=== PATIENT | male | born 1985 | race Caucasian/White ===

== ENCOUNTER 2022-02-15 17:26 | Emergency (ER) | payer BC, SELFPAY ==
[2022-02-15 17:41] VITALS: BP 145/74; PULSE 76; RESP 18; TEMP 36.4; O2SAT 100; BMI 21.2
--- NOTE | 2022-02-15 18:24 | HMH.EDUTC ---
[facility] [place] Disposition Clinical Impression: Otitis media Qualifiers: Otitis media type: unspecified Laterality: right Qualified Code(s): H66.91 - Otitis media, unspecified, right ear Disposition: Home, Self-Care Condition on Discharge: Good Instructions: Middle Ear Infection, Azithromycin Additional Instructions: *Monitor Temp, Over the counter Motrin or Tylenol as directed/as needed Tylenol every 4 hours and Motrin every 6 hours (as long as your family doctor has told you that you can take it) for fever or pain. and straight to ER if unable to lower temp less than 101.0 after medication given *Warm salt water gargles may help to soothe the throat *Throat Lozenges *Warm fluids like tea with honey may help to soothe the throat *Sleep elevated *Humidifier/Vaporizer Your throat swab was sent for culture. Those results are typically sent to your primary care. Be sure to follow up in 2-3 days with your family doctor/primary care physician if no improvement so they can review those result and treat if necessary. If you don?t have a primary care doctor, I recommend you get one but in the mean time, you will have to return to a walk in clinic Follow up IMMEDIATELY for new or worsening symptoms or no Noticeable improvement over the next 48-72 hours. 911 for difficulty breathing or swallowing Prescriptions: methylPREDNISolone [Medrol 4mg tab] 4 mg PO DIRECTED #21 tab [facility]: [facility] Azithromycin [Z-Kian 250mg Tab] 250 mg PO DIRECTED #6 tab Transmission Status: [facility] Referrals: Provider,Referral, [Primary Care Provider] - As needed Time of Disposition: 18:59 Medical Decision Making - José Manuel Inquiry Pt receiving controlled substance: No José Manuel was queried for this patient: No Vital Signs: 02/15/22 17:41 Temperature 97.6 F Temperature Source Oral Pulse Rate [Left] 76 Respiratory Rate 18 Blood Pressure [Right Arm] 145/74 H Blood Pressure Mean [Right Arm] 97 02 Sat by Pulse Oximetry 100 - Lab Data Lab results reviewed: Yes: I reviewed the patient's lab results. Lab Results 02/15/22 18:26: Group A Strep Rapid Negative Orders (Tests/Meds): ORDERS Category Date Time Status Strep Screen Confirmation Stat Micro 02/15/22 18:26 Received [facility] [place] HPI - General Stated complaint: both ears Time Seen by Provider: 02/15/22 18:26 Mode of Arrival: Ambulatory Source of Information: Patient Limitations: No Limitations Description of Symptoms (Recalled from Triage Doc. by RN): pt c/o bilateral ear aches and a sore throat x3 days. HEENT Symptoms (Recalled from RN notes): Yes Resp Symptoms (Recalled from RN notes): No Skin Symptoms (Recalled from RN notes): No MS Symptoms (Recalled from RN notes): No Functional Status (Recalled from RN notes): wnl - History of Present Illness Provider Complaint: Patient states that he has been having sore throat and bilateral ear pain States that it has continued to get worse over the last few days States that this evening he was feeling worse so he came in to get checked out - Related Data Home Medications Medication Instructions Recorded Confirmed buprenorphine 8 mg-naloxone 2 mg 1 tab SUBLINGUAL DAILY 07/06/21 07/06/21 sublingual tablet Previous Rx's Medication Instructions Recorded Azithromycin [Z-Kian 250mg Tab] 250 mg PO DIRECTED #6 tab 02/15/22 methylPREDNISolone [Medrol 4mg 4 mg PO DIRECTED #21 tab 02/15/22 tab] Allergies Allergy/AdvReac Type Severity Reaction Status Date / Time Penicillin Allergy Severe S-DIFF. Uncoded 09/11/19 17:23 BREATHING - Worker's Comp Is this a Worker's Comp case?: No [facility] History - Hepatitis A Screen Drug use history?: No High risk sexual behaviors?: No History of sexually transmitted infection?: No Currently employed?: No Childcare worker?: No Do you have indoor plumbing?: Yes Do you have electricity?: Yes Attestation
[2022-02-15 18:54] LABS: Strep Scrn Group A (Rapid) Negative (Negative)
[2022-02-15 19:05] VITALS: BP 145/74; PULSE 76; RESP 18; TEMP 36.4
== END 2022-02-15 19:16 | disposition home or self-care (01) ==
PROVIDERS: Emergency Provider Nurse Practitioner
DX: H66.93 Otitis media, unspecified, bilateral (principal); J02.9 Acute pharyngitis, unspecified; F17.210 Nicotine dependence, cigarettes, uncomplicated; Z88.0 Allergy status to penicillin
CPT/HCPCS: 87430; 96372; 99213; G0463

== ENCOUNTER → 2022-04-11 13:18 | Outpatient (CLI) | payer BC, SELFPAY ==
--- NOTE | 2022-04-11 13:21 | US_ITS ---
FINAL REPORT CLINICAL HISTORY: MASS OF RIGHT INGUINAL REGION. this is palpable FINDINGS: Sonographic images of the right groin were obtained. Multiple soft tissue nodules are identified, largest measures 3.8 cm, likely represents adenopathy. This may be neoplastic versus reactive nodes. IMPRESSION: Multiple soft tissue nodules which likely represents adenopathy, may be neoplastic versus reactive. Reviewed, Interpreted and Dictated by Rubén Diaz III, MD Transcribed by Milly Vann Authenticated and [facility]
== END ==
LOC: RAD 13:18
PROVIDERS: PCP Internal Medicine Adolescent Medicine; Visit Provider Internal Medicine Adolescent Medicine
DX: R19.09 Other intra-abdominal and pelvic swelling, mass and lump (principal)
CPT/HCPCS: 76882

== ENCOUNTER → 2022-05-04 11:43 | Outpatient (CLI) | payer BC, SELFPAY ==
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
--- NOTE | 2022-05-04 12:23 | XR_ITS ---
FINAL REPORT CLINICAL HISTORY: RT LEG SWELING,RT LEG PAIN FINDINGS: Two views of the right tibia-fibula demonstrate no acute fracture or dislocation. The joint spaces appear normal. The visualized bony structures are well aligned. There is mild soft tissue swelling. IMPRESSION: Swelling with no acute bony abnormality. Reviewed, Interpreted and Dictated by Lorenzo James MD Transcribed by Reginald Xavier Authenticated and . [facility]
== END ==
LOC: RAD 11:44
PROVIDERS: PCP Nurse Practitioner Family; Visit Provider Internal Medicine Adolescent Medicine
DX: M79.604 Pain in right leg (principal); M79.89 Other specified soft tissue disorders
CPT/HCPCS: 73590; 93971

== ENCOUNTER → 2022-05-11 07:29 | Outpatient (CLI) | payer BC, SELFPAY ==
--- NOTE | 2022-05-11 07:35 | US_ITS ---
FINAL REPORT CLINICAL HISTORY: RT INGUINAL, SWOLLEN LYMPH NODE-- core bx-- trevon moreno FINDINGS: Ultrasound guided right groin core biopsy. HISTORY: . Right groin mass. Attending radiologist: Dr. Diaz Physician Target Developer: Trevon Moreno PA-C PROCEDURE: After informed consent was obtained and a time-out was performed, the patient was prepped and draped in usual sterile fashion over the right groin. Utilizing local anesthesia and sterile coaxial technique with a 17-gaugeneedle, access to lesion was obtained. A total of 4 separate 18-gauge core biopsies were obtained. The patient received no conscious sedation. The patient tolerated procedure well and left the department in good condition. IMPRESSION: Status post ultrasound guided core biopsy of right groin mass without immediate complication. Films reviewed , interpreted and dictated by Dr. Diaz. Transcribed by Trevon Moreno PA-C. Reviewed, Interpreted and Dictated by Rubén Diaz III, MD Transcribed by JUSTYNA Terrell Authenticated and [facility]
--- NOTE | 2022-05-11 07:43 | US_ITS ---
FINAL REPORT CLINICAL HISTORY: Rt inguinal lymph node FINDINGS: US EXTREMITY, NONVASCULAR, LIMITED Limited sonographic images were obtained of the right inguinal region. There are enlarged right inguinal lymph nodes measuring up to 3.8 cm. IMPRESSION: Nonspecific enlarged right inguinal lymph nodes could be reactive or neoplastic. Reviewed, Interpreted and Dictated by Rubén Diaz III, MD Transcribed by Reginald Xavier Authenticated and [facility]
== END ==
LOC: RAD 07:29
PROVIDERS: PCP Nurse Practitioner Family; Visit Provider Surgery
DX: R59.9 Enlarged lymph nodes, unspecified (principal); R19.03 Right lower quadrant abdominal swelling, mass and lump
CPT/HCPCS: 49180; 76882; 76942

== ENCOUNTER 2022-07-10 12:19 | Observation (INO) | payer BC, SELFPAY ==
[2022-07-10] VITALS (10 sets, daily range): BP systolic 77–135; BP diastolic 31–112; PULSE 70–100; RESP 14–20; TEMP 36.6–37; O2SAT 97–100; BMI 20.7; BMI 19.0
--- NOTE | 2022-07-10 12:28 | ECG_ITS ---
APPROVED REPORT Exam: Resting ECG HR:96 bpm ECG Measurements Heart Rate 96 AXES MT 129 P 85 QRSd 95 QRS 93 QT 340 T 62 QTc 394 Conclusion SINUS RHYTHM RIGHT ATRIAL ENLARGEMENT [0.3mV P-WAVE] BORDERLINE RIGHT AXIS DEVIATION [QRS AXIS > 90] ABNORMAL ECG UNCONFIRMED REPORT Electronically signed by : Trenton Fermin MD 07/11/2022 15:14:02
--- NOTE | 2022-07-10 12:36 | XR_ITS ---
PROCEDURE INFORMATION: Exam: XR Chest Exam date and time: 07/10/2022 12:55 PM Age: 37 years old Clinical indication: Shortness of breath and other: Dizziness; Additional info: Shortness of air TECHNIQUE: Imaging protocol: Radiologic exam of the chest. Views: 1 view. COMPARISON: No relevant prior studies available. FINDINGS: Lungs: Hyperinflation, interstitial prominence, and chronic granulomatous disease. Pleural spaces: No pleural effusion. Heart/Mediastinum: Dextrocardia based on the technologist reported laterality. Bones/joints: Scoliosis. IMPRESSION: Hyperinflation, interstitial prominence, and chronic granulomatous disease.
--- NOTE | 2022-07-10 12:42 | PC.NURSE ---
PT TO XR AT THIS TIME
--- NOTE | 2022-07-10 12:47 | PC.NURSE ---
PT BECAME VERY WEAK DURING CXR, PT IN WHEELCHAIR AND BACK TO ROOM, RETURNED TO STRETCHER
[2022-07-10 12:50] LABS: Basophils # 0.1 K/mm3 (0-0.2); Basophils % 1.3 % (0.1-2.0); Eosinophils # 0.3 K/mm3 (0.0-0.4); Eosinophils % 2.9 % (0.1-12.0); Hematocrit 31.7 % (42.0-52.0); Hemoglobin 9.9 g/dL (14.1-18.0); Lymphocytes # 3.3 K/mm3 (0.7-4.5); Lymphocytes % 35.6 % (10-50); Mean Corpuscular HGB Conc 31.2 g/dL (31.8-35.4); Mean Corpuscular Hemoglobin 18.6 pg (27.0-31.2); Mean Corpuscular Volume 59.5 fl (80-94); Mean Platelet Volume 7.4 fl (7.4-10.4); Monocytes # 0.4 K/mm3 (0.1-1.0); Monocytes % 4.7 % (1.7-9.3); Neutrophils # 5.2 K/mm3 (1.8-7.8); Neutrophils % 55.5 % (37.0-80.0); Platelet Count 298 K/mm3 (142-424); Red Blood Count 5.32 M/mm3 (4.60-6.20); White Blood Count 9.3 K/mm3 (4.8-10.8)
[2022-07-10 12:54] LABS: Chloride 100 mmol/L (98-107); Potassium 5.2 mmoL/L (3.5-5.1); Sodium 141 mmol/L (136-145)
[2022-07-10 12:56] LABS: Alanine Aminotransferase 15 U/L (12-78); Aspartate Amino Transferase 27 U/L (17-59); Blood Urea Nitrogen 30 mg/dl (9-20); Creatinine Clearance Estimated 161 mL/min (50-200); Estimated Glomerular Filt Rate 128 ml/min (>60); GFR (African American) 155 ML/MIN (>60)
[2022-07-10 12:57] LABS: Albumin Level 4.5 g/dl (3.5-5.0); Albumin/Globulin Ratio 1.6 (1.1-1.8); Alkaline Phosphatase 32 U/L (38-126); Anion Gap 17.2 mEq/L (5-15); Calcium 8.9 mg/dl (8.4-10.2); Carbon Dioxide 29 mmol/L (22.0-30.0); Globulin 2.8 g/dL (1.3-3.2); Glucose 118 mg/dl (74-100); Total Protein,Serum 7.3 g/dl (6.3-8.2)
[2022-07-10 13:02] LABS: Bilirubin,Total < 0.1 mg/dl (0.2-1.3)
--- NOTE | 2022-07-10 13:03 | PC.NURSE ---
orthostatics checked per nurse request 112/64 lying 77/31 sitting pt did not want to stand
[2022-07-10 13:09] LABS: Troponin I < 0.01 ng/ml (0.00-0.034)
--- NOTE | 2022-07-10 13:19 | HMH.EDGENADL ---
Discharge Plan Disposition Patient Disposition: Admitted as Observation Condition: Fair Chief Complaint: Shortness of Breath/Dyspnea Prescriptions Prescriptions: No Action buprenorphine-naloxone 8-2 mg tablet, sublingual 1 tab SUBLINGUAL DAILY Referrals Follow up/Referrals: Trenton Fermin MD [Primary Care Provider] - See instructions Clinical Impressions Clinical Impression: Acute upper gastrointestinal bleeding, Acute blood loss anemia Discharge ED Provider: Kyle Velasco General Adult HPI General Chief complaint: Shortness of Breath/Dyspnea Stated complaint: SOA Time Seen by Provider: 07/10/22 13:19 Mode of Arrival: Wheelchair Limitations: No Limitations Description of Symptoms (Recalled from ER Triage Doc. by RN): PT REPORTS DIZZINESS AND SHORTNESS OF AIR SINCE MONDAY EVENING. DENIES COUGH, CONGESTION, FEVER OR SICK CONTACTS History of Present Illness HPI narrative: 3-day history of dizziness, near syncope, shortness of breath. Dizziness and near syncope occurs when he sits up or stands up. No chest pain. 1 episode of vomiting without blood. Stool is a little runny and black. No abdominal pain. No history of GI bleed. He is a nondrinker. He takes 4-6 aspirin tablets a day for headache and back pain. He is on prescribed Suboxone, but says he only takes about 1 tablet/week. No other chronic medical problems. No history of previous similar problems. Related Data Home Medications Medication Instructions Recorded Confirmed buprenorphine 8 mg-naloxone 2 mg 1 tab sublingual DAILY RECOVERY 07/06/21 07/10/22 sublingual tablet Allergies Allergy/AdvReac Type Severity Reaction Status Date / Time Penicillin Allergy Severe S-DIFF. Uncoded 05/17/22 13:37 BREATHING PFSH PFSH Social History Smoking Status: Never smoker alcohol intake: never substance use type: denies use current occupational status: employed Travel in the last 8 weeks: None ROS Obtained: Yes Systems reviewed as appropriate & no additional complaints except as documented Constitutional Constitutional: Reports system reviewed and no additional complaints, except as documented, Denies fever(s), Reports headache(s) and Reports weakness ENT Ears, Nose, Mouth, and Throat: Reports headache(s), Denies nasal discharge and Denies sore throat Cardiovascular Cardiovascular: Denies chest pain and Reports syncope (Near syncope) Respiratory Respiratory: Reports shortness of breath and Denies cough Gastrointestinal Gastrointestingal: Reports change in bowel habits, melena and vomiting; Denies abdominal pain, constipation or hematemesis Genitourinary Male Genitourinary: Denies difficulty urinating and Denies flank pain Musculoskeletal Musculoskeletal: Denies numbness Neurologic Neurologic: Reports headache(s), Denies numbness, Reports syncope (Near syncope) and Reports weakness Physical Exam General General appearance: alert and in no apparent distress Head Head exam: atraumatic and normocephalic Eye Eye exam: Present normal appearance and EOMI ENT ENT exam: Present mucous membranes moist Neck Neck exam: Present normal inspection and trachea midline Chest Chest inspection: Present normal inspection and symmetric chest wall rise Respiratory Respiratory exam: Present normal lung sounds bilaterally; Absent respiratory distress Cardiovascular Cardiovascular exam: Present regular rate, normal rhythm and normal heart sounds Abdominal Exam Abdominal exam: Present soft and normal bowel sounds; Absent distention, tenderness, guarding, rebound or rigidity Extremities Exam Extremities exam: Present normal inspection Neurological Exam Neurological exam: Present alert and oriented X3 Psychiatric Psychiatric exam: Present normal affect and normal mood Skin Skin exam: Present warm, dry and pallor Medical Decision Making José Manuel Inquiry Pt receiving controlled substance: No Vital Signs: 07/10/22 12:19 07/10/22 12:31 0
--- NOTE | 2022-07-10 13:32 | PC.NURSE ---
ED MD AT BEDSIDE FOR EVALUATION
[2022-07-10 14:19] LABS: Activated Partial Thrombo Time 25.9 seconds (22.8-30.6); INR 1.09 (0.9-1.1); Prothrombin Time 11.7 seconds (10.1-12.5)
--- NOTE | 2022-07-10 14:48 | PC.NURSE ---
PT TO BR TO PROVIDE STOOL SAMPLE
--- NOTE | 2022-07-10 14:54 | PC.NURSE ---
pt in br for specimen
[2022-07-10 15:11] LABS: Occult Blood,Stool Positive (Negative)
--- NOTE | 2022-07-10 16:06 | PC.NURSE ---
paged dr lobato
--- NOTE | 2022-07-10 16:11 | PC.NURSE ---
Dr Velasco spoke with Dr Collins
[2022-07-10 16:28] LABS: Coronavirus 19, PCR Not Detected (NotDetected); Influenza A, PCR Not Detected (NotDetected); Influenza B, PCR Not Detected (NotDetected)
--- NOTE | 2022-07-10 16:28 | PC.NURSE ---
PT UPDATED ON POC AT THIS TIME. QUESTIONS ENCOURAGED AND ANSWERED. PT V/U
[2022-07-10 16:53] LABS: Troponin I < 0.01 ng/ml (0.00-0.034)
--- NOTE | 2022-07-10 17:02 | PC.NURSE ---
REPORT GIVEN TO Felisa BOSTON RN
--- NOTE | 2022-07-10 17:20 | PC.NURSE ---
Spoke with Radha PURVIS from ER. She spoke with Dr. Gifford and stated that it was fine for him to has a regular diet and NPO in the morning for Surgery Consult.
--- NOTE | 2022-07-10 17:36 | PC.NURSE ---
patient arrived to floor from ED by wheelchair
--- NOTE | 2022-07-10 20:04 | PC.NURSE ---
Pt is A/Ox4. He ate a regular diet and tolerated it well. He has no complaints of pain, N/V, or diarrhea at this time. Family is at bedside.
[2022-07-11] VITALS (18 sets, daily range): BP systolic 100–142; BP diastolic 40–71; PULSE 61–95; RESP 18–19; TEMP 36.4–37.2; O2SAT 96–100; BMI 19.3
--- NOTE | 2022-07-11 04:05 | PC.NURSE ---
No changes since previous assessment. ABD soft, BS active x 4. Pt has had no complaints thus far during my shift. Pt has rested well. IV infusing per order. Pt has been NPO since midnight for surgery consult in AM. No needs voiced at this time. Call light in reach.
[2022-07-11 06:53] LABS: Basophils % 0.7 % (0.1-2.0); Eosinophils # 0.2 K/mm3 (0.0-0.4); Eosinophils % 2.9 % (0.1-12.0); Lymphocytes # 1.9 K/mm3 (0.7-4.5); Lymphocytes % 35.6 % (10-50); Mean Corpuscular HGB Conc 32.7 g/dL (31.8-35.4); Mean Corpuscular Volume 58.2 fl (80-94); Mean Platelet Volume 7.6 fl (7.4-10.4); Monocytes # 0.3 K/mm3 (0.1-1.0); Neutrophils % 55.7 % (37.0-80.0); Platelet Count 182 K/mm3 (142-424); Red Blood Count 3.81 M/mm3 (4.60-6.20); Red Cell Distribution Width 16.9 % (11.5-17.5); White Blood Count 5.4 K/mm3 (4.8-10.8)
--- NOTE | 2022-07-11 07:30 | P.CONPHA_ITS ---
[facility] Pharmacy VTE Monitoring Patient Demographics Patient Allergies Penicillin Allergy (Severe, Uncoded 05/17/22 13:37) S-DIFF. BREATHING Height: 1.93 m Weight: 71.923 kg Current Active Problems (Updated 07/10/22 @ 17:06 by Olivia Mcintosh RN) Acute upper gastrointestinal bleeding (Acute) Acute blood loss anemia (Acute) VTE Risk Labs: VTE Related Lab Results Hgb 9.9 g/dL (14.1-18.0) L 07/10/22 12:30 Hct 31.7 % (42.0-52.0) L 07/10/22 12:30 Plt Count 298 K/mm3 (142-424) 07/10/22 12:30 PT 11.7 seconds (10.1-12.5) 07/10/22 13:55 INR 1.09 (0.9-1.1) 07/10/22 13:55 APTT 25.9 seconds (22.8-30.6) 07/10/22 13:55 BUN 30 mg/dl (9-20) H 07/10/22 12:30 Creatinine 0.70 mg/dl (0.66-1.25) 07/10/22 12:30 Estimated Creat Clear 161 mL/min (50-200) 07/10/22 12:30 VTE Score: 0 Prophylaxis VTE Prophylaxis Ordered?: Yes Types of VTE Prophylaxis: TEDS Knee High Location of Applied Device: Bilateral Lower Extremeties
--- NOTE | 2022-07-11 07:30 | HMH.PHAINT1 ---
Pharmacy Intervention Comments: MEDICATION RECONCILIATION COMPLETED ON PATIENT USING EXTERNAL FILL HISTORY FROM PHARMACY,JOSE EDUARDO REPORT, AND ER NOTE. -HENRIETTA LEMAD
[2022-07-11 08:01] LABS: Hematocrit 22.2 % (42.0-52.0)
[2022-07-11 08:02] LABS: Hemoglobin 7.2 g/dL (14.1-18.0)
--- NOTE | 2022-07-11 08:18 | EXP.HP ---
History of Present Illness *Admission Date: 07/10/22 *Reason for visit:: Weakness and dyspnea *History of present illness: 37-year-old white male presented to the emergency department yesterday with some weakness and some dizziness when he stood up. He vomited in the shower yesterday, the , the day before admission, and reported that it was somewhat dark, and over the past couple of days has had increasing dark/runny stools. No cardiac symptoms other than the dizziness, and no dyspnea with exertion and no cough productive of sputum. In the emergency department weakness was worked up with labs and revealed an hemoglobin of 9 g. Certainly below his baseline. He also had guaiac positive stools. Given his weakness, worsening hemoglobin he was admitted to observation for further evaluation and surgical consultation for EGD. This morning states he feels better after IV fluids. Has had no further stools or vomiting episodes. [facility] Medical History (Updated 07/10/22 @ 17:06 by Olivia Mcintosh RN) Ankle fracture Hand fracture History of anemia Surgical History (Updated 07/10/22 @ 17:06 by Olivia Mcintosh RN) History of tonsillectomy Family History (Updated 07/10/22 @ 17:06 by Olivia Mcintosh RN) Family history of cancer Social History (Updated 07/10/22 @ 17:08 by Olivia Mcintosh RN) Smoking Status: Never smoker alcohol intake: never substance use type: denies use and former substance user current occupational status: employed Travel in the last 8 weeks: None household members: spouse housing: house lives independently: No marital status: education level: college ottoniel/gnosticism: None special ottoniel needs: No Review of Systems Review of Systems Review of systems:: pertinent systems reviewed and negative unless documented below Constitutional Constitutional: Reports headache(s) and Reports weakness ENT Ears, Nose, Mouth, and Throat: Reports headache(s) *Cardiovascular Cardiovascular: Reports syncope (Near syncope) *Musculoskeletal Musculoskeletal: Denies numbness *Neurologic Neurologic: Reports headache(s), Denies numbness, Reports syncope (Near syncope) and Reports weakness Meds Home Medications and Allergies Home Medications Medication Instructions Recorded Confirmed Type buprenorphine 8 mg-naloxone 2 mg 2 tab sublingual DAILY RECOVERY 07/06/21 07/11/22 History sublingual tablet New Prescriptions to Start Prescriptions: Allergies Allergy/AdvReac Type Severity Reaction Status Date / Time Penicillin Allergy Severe S-DIFF. Uncoded 05/17/22 13:37 BREATHING Exam Data for Last 24 hours Vital signs and Labs for Last 24 Hours: Temp Pulse Resp BP Pulse Ox 98.0 F 69 18 117/56 L 99 07/11/22 04:00 07/11/22 04:00 07/11/22 04:00 07/11/22 04:00 07/11/22 04:00 Laboratory Results - last 24 hr 07/10/22 12:30: WBC 9.3, RBC 5.32, Hgb 9.9 L, Hct 31.7 L, MCV 59.5 L, MCH 18.6 L, MCHC 31.2 L, RDW 17.0, Plt Count 298, MPV 7.4, Neut % (Auto) 55.5, Lymph % (Auto) 35.6, Davie % (Auto) 4.7, Eos % (Auto) 2.9, Baso % (Auto) 1.3, Neut # (Auto) 5.2, Lymph # (Auto) 3.3, Davie # (Auto) 0.4, Eos # (Auto) 0.3, Baso # (Auto) 0.1 07/10/22 12:30: Sodium 141, Potassium 5.2 H, Chloride 100, Carbon Dioxide 29, Anion Gap 17.2 H, BUN 30 H, Creatinine 0.70, Estimated Creat Clear 161, Estimated GFR 128, Est GFR ( Amer) 155, Glucose 118 H, Calcium 8.9, Total Bilirubin < 0.1 L, AST 27, ALT 15, Alkaline Phosphatase 32 L, Troponin I < 0.01, Total Protein 7.3, Albumin 4.5, Globulin 2.8, Albumin/Globulin Ratio 1.6 07/10/22 13:55: PT 11.7, INR 1.09, APTT 25.9 07/10/22 13:55: Blood Type O Positive, Antibody Screen Negative, Crossmatch ([facility]) See Detail 07/10/22 15:05: Stool Occult Blood Positive A 07/10/22 16:10: Troponin I < 0.01 07/10/22 16:24: SARS-CoV-2 (PCR) Not detected, Influenza A Untype (PCR) Not detected, Influenza Type B (PCR) Not detected 07/11/22 06:30: WBC 5.4 D, RBC 3.81 L D
--- NOTE | 2022-07-11 09:25 | EXP.ANES.CKL ---
[facility] Medical History (Updated 07/10/22 @ 17:06 by Olivia Mcintosh RN) Ankle fracture Hand fracture History of anemia Surgical History (Updated 07/10/22 @ 17:06 by Olivia Mcintosh RN) History of tonsillectomy Family History (Updated 07/10/22 @ 17:06 by Olivia Mcintosh RN) Other Family history of cancer Social History (Updated 07/10/22 @ 17:08 by Olivia Mcintosh RN) Smoking Status: Never smoker alcohol intake: never substance use type: denies use and former substance user current occupational status: employed Travel in the last 8 weeks: None household members: spouse housing: house lives independently: No marital status: education level: college ottoniel/congregational: None special ottoniel needs: No [facility] Anesthesia Checklist Patient Identification Patient Identification: Arm Band and Verbal (Name & ) Structural Data Admitted From: Inpatient Planned Operative Procedure/s: EGD Verified Documents: Surgical Consent NPO Status Verified Time NPO: 23:00 Additional verifications Cephalosporin Allergy: Yes Airway Assessment C-Spine Mobility Assessed: Yes TMJ Mobility Assessed: Yes Dentition: Good Dentition Neurological Assessment Level of Consciousness: Awake, Alert, Appropriate and Follows Commands Anesthesia Plan Anesthesia Risk discussed: Yes ASA Class: I Anesthesia Type: MAC
--- NOTE | 2022-07-11 09:49 | PC.NURSE ---
lab notified this rn blood was ready but pt is down for procedure
--- NOTE | 2022-07-11 09:50 | EXP.SURG.CON ---
History of Present Illness *Admission Date: 07/10/22 *Reason for visit:: Gastrointestinal hemorrhage/anemia. *History of present illness: This is a 37-year-old gentleman seen in consultation Dr. Fermin for evaluation regarding likely upper gastrointestinal hemorrhage. Below is forwarded from initial evaluation emergency department/primary care provider: Forwarded from emergency department/primary care provider evaluation: 37-year-old white male presented to the emergency department yesterday with some weakness and some dizziness when he stood up. He vomited in the shower yesterday, the , the day before admission, and reported that it was somewhat dark, and over the past couple of days has had increasing dark/runny stools. No cardiac symptoms other than the dizziness, and no dyspnea with exertion and no cough productive of sputum. In the emergency department weakness was worked up with labs and revealed an hemoglobin of 9 g. Certainly below his baseline. He also had guaiac positive stools. Given his weakness, worsening hemoglobin he was admitted to observation for further evaluation and surgical consultation for EGD. This morning states he feels better after IV fluids. Has had no further stools or vomiting episodes. PFSH PFSH Medical History (Updated 07/10/22 @ 17:06 by Olivia Mcintosh RN) Ankle fracture Hand fracture History of anemia Surgical History (Updated 07/10/22 @ 17:06 by Olivia Mcintosh RN) History of tonsillectomy Family History (Updated 07/10/22 @ 17:06 by Olivia Mcintosh RN) Family history of cancer Social History (Updated 07/10/22 @ 17:08 by Olivia Mcintosh RN) Smoking Status: Never smoker alcohol intake: never substance use type: denies use and former substance user current occupational status: employed Travel in the last 8 weeks: None household members: spouse housing: house lives independently: No marital status: education level: college ottoniel/mandaeism: None special ottoniel needs: No Review of Systems Constitutional Constitutional: Reports headache(s) and Reports weakness ENT Ears, Nose, Mouth, and Throat: Reports headache(s) *Cardiovascular Cardiovascular: Reports syncope (Near syncope) *Musculoskeletal Musculoskeletal: Denies numbness *Neurologic Neurologic: Reports headache(s), Denies numbness, Reports syncope (Near syncope) and Reports weakness Meds Home Medications and Allergies Home Medications Medication Instructions Recorded Confirmed Type buprenorphine 8 mg-naloxone 2 mg 2 tab sublingual DAILY RECOVERY 07/06/21 07/11/22 History sublingual tablet New Prescriptions to Start Prescriptions: Allergies Allergy/AdvReac Type Severity Reaction Status Date / Time Penicillins Allergy Severe Difficulty Verified 07/11/22 08:57 Breathing Exam (Inpt) Vital signs and Labs for Last 24 Hours: Temp Pulse Resp BP Pulse Ox 97.6 F 69 18 131/68 100 07/11/22 08:00 07/11/22 08:00 07/11/22 08:00 07/11/22 08:00 07/11/22 08:00 Laboratory Results - last 24 hr 07/10/22 12:30: WBC 9.3, RBC 5.32, Hgb 9.9 L, Hct 31.7 L, MCV 59.5 L, MCH 18.6 L, MCHC 31.2 L, RDW 17.0, Plt Count 298, MPV 7.4, Neut % (Auto) 55.5, Lymph % (Auto) 35.6, [place] % (Auto) 4.7, Eos % (Auto) 2.9, Baso % (Auto) 1.3, Neut # (Auto) 5.2, Lymph # (Auto) 3.3, [place] # (Auto) 0.4, Eos # (Auto) 0.3, Baso # (Auto) 0.1 07/10/22 12:30: Sodium 141, Potassium 5.2 H, Chloride 100, Carbon Dioxide 29, Anion Gap 17.2 H, BUN 30 H, Creatinine 0.70, Estimated Creat Clear 161, Estimated GFR 128, Est GFR ( Amer) 155, Glucose 118 H, Calcium 8.9, Total Bilirubin < 0.1 L, AST 27, ALT 15, Alkaline Phosphatase 32 L, Troponin I < 0.01, Total Protein 7.3, Albumin 4.5, Globulin 2.8, Albumin/Globulin Ratio 1.6 07/10/22 13:55: PT 11.7, INR 1.09, APTT 25.9 07/10/22 13:55: Blood Type O Positive
--- NOTE | 2022-07-11 09:53 | P.PN_ITS ---
PFSH [facility] Medical History (Updated 07/10/22 @ 17:06 by Olivia Mcintosh RN) Ankle fracture Hand fracture History of anemia Surgical History (Updated 07/10/22 @ 17:06 by Olivia Mcintosh RN) History of tonsillectomy Family History (Updated 07/10/22 @ 17:06 by Olivia Mcintosh RN) Other Family history of cancer Social History (Updated 07/10/22 @ 17:08 by Olivia Mcintosh RN) Smoking Status: Never smoker alcohol intake: never substance use type: denies use and former substance user current occupational status: employed Travel in the last 8 weeks: None household members: spouse housing: house lives independently: No marital status: education level: college ottoniel/hindu: None special ottoniel needs: No [facility] Anesthesia Checklist Patient Identification Patient Identification: Arm Band and Verbal (Name & ) Structural Data Admitted From: Home Planned Operative Procedure/s: Prostate BX NPO Status Verified Time NPO: 00:00 Additional verifications Cephalosporin Allergy: Yes Airway Assessment C-Spine Mobility Assessed: Yes TMJ Mobility Assessed: Yes Dentition: Good Dentition Neurological Assessment Level of Consciousness: Awake, Alert, Appropriate and Follows Commands Anesthesia Plan Anesthesia Risk discussed: Yes ASA Class: III Anesthesia Type: MAC
--- NOTE | 2022-07-11 09:53 | HMH.SCOPE ---
Procedure: Date: 07/11/22 Patient Date of :: 1985 Procedure Performed:: Esophagogastroduodenoscopy with biopsy Indications:: Upper gastrointestinal hemorrhage Performing Provider:: Chandler Chan MD Referring Provider:: Dr. Fermin Sedation:: Monitored anesthesia care Procedure:: After informed consent was obtained the patient was taken to the endoscopy suite. Sedation ensued after the patient was transferred to the left lateral decubitus position. Pulse, blood pressure, and oxygen saturation were monitored throughout the procedure. The endoscope was advanced beyond the duodenal bulb. Retroflexion within the gastric lumen was accomplished. The gastroscope was carefully removed and the patient was transferred to recovery in stable condition. Please see findings and specimens below for detail. Findings:: Four (4) moderate antral/distal gastric body ulcerations with exudative base Multiple satellite small shallow ulcerations in distal gastric body/antrum No active bleeding or sign of recent hemorrhage No visible vessel at base of ulcerations Recommendations:: Continue proton pump inhibition Transfuse as per primary service Carafate added Serial hemoglobin/hematocrit as needed Continue follow-up and likely repeat esophagogastroduodenoscopy in 6-8 weeks Complications:: No immediate Estimated blood obtained (mL): 1
--- NOTE | 2022-07-11 14:19 | PC.NURSE ---
ROUNDED ON PATIENT. FAMILY IS AT BEDSIDE. PATIENT HAD AN EGD AND BLOOD TODAY. NO CONCERNS OR QUESTIONS CURRENTLY ENCOURAGED THEM TO RING OUT NEEDED
[2022-07-11 14:30] LABS: Hematocrit 23.9 % (42.0-52.0)
[2022-07-11 14:32] LABS: Hemoglobin 7.8 g/dL (14.1-18.0)
--- NOTE | 2022-07-11 17:17 | PC.NURSE ---
PT IS AOX4, ABLE TO MAKE NEEDS KNOWN TO STAFF, 1UNIT PRBC'S ADMIN THIS SHIFT, PT TOLERATED WELL. HAS NOT REQUIRED O2 SUPPORT THIS SHIFT. AMBULATED TO RESTROOM INDEPENDENTLY. DID HAVE ONE EPISODE OF DIZZINESS BEFORE BLOOD TRANSFUSION BUT NON SINCE. IS TOLERATING DIET WELL AND EXPRESSES INTEREST IN ADVANCING DIET MD AWARE AND HAS ADVANCED TOLERATED. HE HAS DENIED ABD THIS SHIFT. NO N/V/D NOTED.
--- NOTE | 2022-07-11 21:33 | PC.NURSE ---
Contacted nightwatch for pt scheduled 2100 1gm Sulcrafate UDC, No UDC available. Patient drawer has 1gm Sulcrafate in pill form. Nightwatch states it is ok to give pill form and will change the order to scan medication.
[2022-07-11 22:22] LABS: Hematocrit 22.8 % (42.0-52.0); Hemoglobin 7.4 g/dL (14.1-18.0)
[2022-07-12] VITALS: BP 122/64; PULSE 74; RESP 18; TEMP 36.9; O2SAT 100
--- NOTE | 2022-07-12 01:29 | PC.NURSE ---
Assumed care of this patient at this time. Report received from Imani Lugo RN
[2022-07-12 04:00] VITALS: BP 111/52; PULSE 65; RESP 16; TEMP 36.8; O2SAT 97
--- NOTE | 2022-07-12 05:08 | PC.NURSE ---
Pt has slept since this RN assumed care. VSS. No needs voiced, no acute distress noted. Will continue to monitor.
--- NOTE | 2022-07-12 06:45 | EXP.SURG.PN ---
Subjective Patient reports: other Narrative: Currently resting. Per nursing, the patient has had a pretty good night . Exam Data for Last 24 hours Vital signs and Labs for Last 24 Hours: Temp Pulse Resp BP Pulse Ox 98.2 F 65 16 111/52 L 97 07/12/22 04:00 07/12/22 04:00 07/12/22 04:00 07/12/22 04:00 07/12/22 04:00 Laboratory Results - last 24 hr 07/10/22 13:55: Blood Type O Positive, Antibody Screen Negative, Crossmatch (AHG) See Detail 07/11/22 06:30: WBC 5.4 D, RBC 3.81 L D, Hgb 7.2 L D, Hct 22.2 L, MCV 58.2 L, MCH 19.0 L, MCHC 32.7, RDW 16.9, Plt Count 182 D, MPV 7.6, Neut % (Auto) 55.7, Lymph % (Auto) 35.6, [place] % (Auto) 5.0, Eos % (Auto) 2.9, Baso % (Auto) 0.7, Neut # (Auto) 3.0, Lymph # (Auto) 1.9, [place] # (Auto) 0.3, Eos # (Auto) 0.2, Baso # (Auto) 0.0 07/11/22 06:30: Blood Type Confirm O Positive 07/11/22 13:25: Hgb 7.8 L, Hct 23.9 L 07/11/22 22:18: Hgb 7.4 L, Hct 22.8 L I & O for Last 24 hours: Intake & Output 07/09/22 07/10/22 07/11/22 07/12/22 11:59 11:59 11:59 11:59 Intake Total 960 / 960 768 / 768 Output Total 650 / 1050 400 / 400 Balance 310 / -90 368 / 368 Weight 158 lb 9 oz Constitutional Constitutional: no acute distress *Routine Respiratory Exam Respiratory: Absent respiratory distress Progress Note: A&P Assessment and plan (1) Acute upper gastrointestinal bleeding: Status: Acute (2) Acute blood loss anemia: Status: Acute Assessment and plan: Follow-up morning hemoglobin/hematocrit (3) Gastric ulcer: Status: Acute Assessment and plan: Continue current medical therapy
[2022-07-12 06:52] LABS: Basophils # 0.1 K/mm3 (0-0.2); Basophils % 0.9 % (0.1-2.0); Eosinophils # 0.2 K/mm3 (0.0-0.4); Eosinophils % 3.1 % (0.1-12.0); Hematocrit 23.1 % (42.0-52.0); Hemoglobin 7.4 g/dL (14.1-18.0); Lymphocytes # 2.1 K/mm3 (0.7-4.5); Lymphocytes % 32.6 % (10-50); Mean Corpuscular Hemoglobin 19.2 pg (27.0-31.2); Mean Corpuscular Volume 59.9 fl (80-94); Mean Platelet Volume 7.2 fl (7.4-10.4); Monocytes # 0.3 K/mm3 (0.1-1.0); Monocytes % 4.3 % (1.7-9.3); Neutrophils # 3.8 K/mm3 (1.8-7.8); Neutrophils % 59.1 % (37.0-80.0); Platelet Count 176 K/mm3 (142-424); Red Blood Count 3.86 M/mm3 (4.60-6.20); Red Cell Distribution Width 18.2 % (11.5-17.5); White Blood Count 6.4 K/mm3 (4.8-10.8)
[2022-07-12 06:53] LABS: Anion Gap 10.6 mEq/L (5-15); Blood Urea Nitrogen 11 mg/dl (9-20); Calcium 8.5 mg/dl (8.4-10.2); Carbon Dioxide 30 mmol/L (22.0-30.0); Chloride 99 mmol/L (98-107); Creatinine Clearance Estimated 150 mL/min (50-200); Estimated Glomerular Filt Rate 128 ml/min (>60); GFR (African American) 155 ML/MIN (>60); Glucose 91 mg/dl (74-100); Potassium 3.6 mmoL/L (3.5-5.1); Sodium 136 mmol/L (136-145)
--- NOTE | 2022-07-12 07:37 | EXP.DC.SUM ---
General Admission date:: 07/10/22 Hospital Course Hospital Course Hospital Course: 37-year-old male admitted for acute anemia and abdominal pain. Noted to have recent history of melenic stools. Findings concerning for upper GI bleed. Surgery consulted, admitted for work-up and treatment. EGD performed with findings as below. No active bleeding during hospital admission. Transfused 1 unit packed red blood cells given hemoglobin of 7.2. Hemoglobin has remained stable since in the high 7 range. No further bleeding. Tolerating PPI and Carafate therapy. Medically stable for discharge home. Strongly recommended avoiding NSAIDs and aspirin containing compounds. We will have close follow-up with PCP and surgery. Will need repeat labs in the coming week to monitor rebound of hemoglobin. Low threshold to come back to the hospital if develops more black stools or worsening fatigue concern for rebleeding. patient denies any abdominal pain this morning, SOA, CP, N/V/D. no melenic stools. Continues to have a headache. EGD performed 07/11/22 Findings:: Four (4) moderate antral/distal gastric body ulcerations with exudative base Multiple satellite small shallow ulcerations in distal gastric body/antrum No active bleeding or sign of recent hemorrhage No visible vessel at base of ulcerations Recommendations:: Continue proton pump inhibition Carafate added Continue follow-up and likely repeat esophagogastroduodenoscopy in 6-8 weeks Exam Data for Last 24 hours Vital signs and Labs for Last 24 Hours: Temp Pulse Resp BP Pulse Ox 98.2 F 65 16 111/52 L 97 07/12/22 04:00 07/12/22 04:00 07/12/22 04:00 07/12/22 04:00 07/12/22 04:00 Laboratory Results - last 24 hr 07/10/22 13:55: Blood Type O Positive, Antibody Screen Negative, Crossmatch (AHG) See Detail 07/11/22 06:30: WBC 5.4 D, RBC 3.81 L D, Hgb 7.2 L D, Hct 22.2 L, MCV 58.2 L, MCH 19.0 L, MCHC 32.7, RDW 16.9, Plt Count 182 D, MPV 7.6, Neut % (Auto) 55.7, Lymph % (Auto) 35.6, [place] % (Auto) 5.0, Eos % (Auto) 2.9, Baso % (Auto) 0.7, Neut # (Auto) 3.0, Lymph # (Auto) 1.9, [place] # (Auto) 0.3, Eos # (Auto) 0.2, Baso # (Auto) 0.0 07/11/22 06:30: Blood Type Confirm O Positive 07/11/22 13:25: Hgb 7.8 L, Hct 23.9 L 07/11/22 22:18: Hgb 7.4 L, Hct 22.8 L 07/12/22 06:09: WBC 6.4, RBC 3.86 L, Hgb 7.4 L, Hct 23.1 L, MCV 59.9 L, MCH 19.2 L, MCHC 32.0, RDW 18.2 H, Plt Count 176, MPV 7.2 L, Neut % (Auto) 59.1, Lymph % (Auto) 32.6, [place] % (Auto) 4.3, Eos % (Auto) 3.1, Baso % (Auto) 0.9, Neut # (Auto) 3.8, Lymph # (Auto) 2.1, [place] # (Auto) 0.3, Eos # (Auto) 0.2, Baso # (Auto) 0.1 07/12/22 06:09: Sodium 136, Potassium 3.6 D, Chloride 99, Carbon Dioxide 30, Anion Gap 10.6, BUN 11 D, Creatinine 0.70, Estimated Creat Clear 150, Estimated GFR 128, Est GFR ( Amer) 155, Glucose 91, Calcium 8.5 I & O for Last 24 hours: Intake & Output 07/09/22 07/10/22 07/11/22 07/12/22 23:59 23:59 23:59 23:59 Intake Total 360 / 360 1368 / 1368 Output Total 400 / 400 650 / 650 0 / 0 Balance -40 / -40 718 / 718 0 / 0 Weight 70.789 kg 71.923 kg Constitutional Constitutional: no acute distress *Routine HEENT Exam Head: Present normocephalic Eye: Present EOMI and PERRL ENT: Present mucous membranes moist *Routine Neck Exam Neck: Present supple; Absent lymphadenopathy *Routine Respiratory Exam Respiratory: Present CTA bilaterally *Routine Cardiovascular Exam Cardiovascular: Present RRR *Routine Abdominal Exam Abdominal: Present soft and normoactive bowel sounds; Absent tenderness *Routine Extremities Exam Extremities: Absent cyanosis, clubbing or edema *Routine Skin Exam Skin: Present warm; Absent rash *Routine Neurological Exam Neurological: Present alert and oriented X3 Results Data Completed and Pending Labs on day of discharge: Labs from last 24 hours 07/12/22 07/12/22 07/11/22 06:09 06:09 22:18 WBC 6.4 RBC 3.86 L Hgb 7.4 L 7.4 L Hct 23.1 L 22.8 L MCV 59.9 L
[2022-07-12 08:00] VITALS: BP 154/74; PULSE 76; RESP 16; TEMP 36.6; O2SAT 96; O2SAT 97
--- NOTE | 2022-07-12 10:27 | HMH.PHAINT1 ---
Pharmacy Intervention Comments: DISCHARGE MEDICATION COUNSELING PROVIDED. DISCUSSED THE FOLLOWING NEW MEDICATIONS: -TYLENOL (FOR FEVER/MILD PAIN. TAKE ONE TABLET EVERY 4 HOURS NEEDED, DO NOT TAKE OVER 3000 TO 4000 MG DAILY) -FIORICET (CONTAINS TYLENOL, Q8H PRN, FOR HEADACHE/MIGRAINE. WATCH FOR DIZZINESS, SEDATION, UPSET STOMACH) -PANTOPRAZOLE (FOR REFLUX, GI BLEED, TAKE TWICE DAILY 30-60 MINUTES PRIOR TO MEAL) -SUCRALFATE (FOR GI BLEED, TAKE ACHS, AVOID WITHIN 2 HOURS OF OTHER MEDS, CONSTIPATION POSSIBLE) PATIENT VERBALIZED NO QUESTIONS AT THIS TIME.
--- NOTE | 2022-07-13 13:21 | CARE MANAGER ---
Spoke with patient and he is doing well. He does still have slight headache. He is aware of medication changes and follow up appointments. Denies questions or concerns. ADY Christianson
== END 2022-07-12 10:40 | disposition home or self-care (01) ==
LOC: ER 16:27 → 2ND 17:11
PROVIDERS: Surgery; Admitting Provider Emergency Medicine; Emergency Provider Emergency Medicine; PCP Internal Medicine Adolescent Medicine; Visit Provider Internal Medicine Adolescent Medicine
PROC: 0DJ08ZZ Inspection of Upper Intestinal Tract, Via Natural or Artificial Opening Endoscopic (ICD-10-PCS; CPT 43235; principal; 2022-07-11 09:30)
DX: K25.0 Acute gastric ulcer with hemorrhage (principal); D62 Acute posthemorrhagic anemia; Z20.822 Contact with and (suspected) exposure to COVID-19
CPT/HCPCS: 43239; 36415; 71045; 80048; 80053; 82272; 84484; 85014; 85018; 85025; 85610; 85730; 86850; 93005; 99285; C9803; G0328; G0378; P9016; U0003; U0005

== ENCOUNTER → 2022-07-15 10:02 | Outpatient (CLI) | payer BC, SELFPAY ==
[2022-07-15 10:44] LABS: Basophils % 0.7 % (0.1-2.0); Eosinophils # 0.3 K/mm3 (0.0-0.4); Eosinophils % 5.5 % (0.1-12.0); Hematocrit 24.2 % (42.0-52.0); Hemoglobin 7.6 g/dL (14.1-18.0); Lymphocytes # 1.7 K/mm3 (0.7-4.5); Lymphocytes % 28.8 % (10-50); Mean Corpuscular HGB Conc 31.3 g/dL (31.8-35.4); Mean Corpuscular Hemoglobin 19.4 pg (27.0-31.2); Mean Corpuscular Volume 62.1 fl (80-94); Mean Platelet Volume 7.3 fl (7.4-10.4); Monocytes # 0.4 K/mm3 (0.1-1.0); Neutrophils # 3.4 K/mm3 (1.8-7.8); Platelet Count 227 K/mm3 (142-424); Red Cell Distribution Width 20.4 % (11.5-17.5); White Blood Count 5.8 K/mm3 (4.8-10.8)
== END ==
PROVIDERS: PCP Internal Medicine Adolescent Medicine; Visit Provider Internal Medicine Adolescent Medicine
DX: K92.2 Gastrointestinal hemorrhage, unspecified (principal); D62 Acute posthemorrhagic anemia
CPT/HCPCS: 36415; 85025

== ENCOUNTER → 2022-08-03 10:15 | Outpatient (CLI) | payer BC, SELFPAY ==
[2022-08-03 10:55] LABS: Basophils # 0.1 K/mm3 (0-0.2); Basophils % 0.9 % (0.1-2.0); Eosinophils # 0.3 K/mm3 (0.0-0.4); Eosinophils % 4.3 % (0.1-12.0); Hematocrit 36.5 % (42.0-52.0); Lymphocytes # 1.4 K/mm3 (0.7-4.5); Lymphocytes % 24.3 % (10-50); Mean Corpuscular HGB Conc 27.5 g/dL (31.8-35.4); Mean Corpuscular Volume 69.2 fl (80-94); Mean Platelet Volume 6.9 fl (7.4-10.4); Monocytes # 0.3 K/mm3 (0.1-1.0); Monocytes % 5.7 % (1.7-9.3); Neutrophils # 3.8 K/mm3 (1.8-7.8); Neutrophils % 64.9 % (37.0-80.0); Platelet Count 163 K/mm3 (142-424); Red Blood Count 5.27 M/mm3 (4.60-6.20); Red Cell Distribution Width 17.3 % (11.5-17.5); White Blood Count 5.8 K/mm3 (4.8-10.8)
[2022-08-03 12:01] LABS: Chloride 101 mmol/L (98-107)
[2022-08-03 12:02] LABS: Potassium 4.4 mmoL/L (3.5-5.1); Sodium 141 mmol/L (136-145)
[2022-08-03 12:04] LABS: Alanine Aminotransferase 20 U/L (12-78); Albumin Level 4.4 g/dl (3.5-5.0); Albumin/Globulin Ratio 1.7 (1.1-1.8); Alkaline Phosphatase 43 U/L (38-126); Anion Gap 15.4 mEq/L (5-15); Aspartate Amino Transferase 27 U/L (17-59); Blood Urea Nitrogen 12 mg/dl (9-20); Calcium 8.9 mg/dl (8.4-10.2); Carbon Dioxide 29 mmol/L (22.0-30.0); Estimated Glomerular Filt Rate 128 ml/min (>60); GFR (African American) 155 ML/MIN (>60); Globulin 2.6 g/dL (1.3-3.2); Glucose 86 mg/dl (74-100)
[2022-08-03 12:06] LABS: Bilirubin,Total < 0.1 mg/dl (0.2-1.3)
== END ==
PROVIDERS: PCP Internal Medicine Adolescent Medicine; Visit Provider Internal Medicine Adolescent Medicine
DX: K92.2 Gastrointestinal hemorrhage, unspecified (principal)
CPT/HCPCS: 36415; 80053; 85025

== ENCOUNTER 2022-08-30 10:14 | Day surgery (SDC) | payer BC, SELFPAY ==
[2022-08-30 10:42] VITALS: BP 129/72; PULSE 62; RESP 18; TEMP 37; O2SAT 99; BMI 21.2
[2022-08-30 10:57] VITALS: O2SAT 98
--- NOTE | 2022-08-30 11:13 | HMH.SCOPE ---
Procedure: Date: 08/30/22 Patient Date of :: 1985 Procedure Performed:: Esophagogastroduodenoscopy with biopsy Indications:: Antrum/distal gastric body ulcerations Note: Esophagogastroduodenoscopy performed on July 11, 2022 revealed for moderate antral/distal gastric body ulcerations and multiple small satellite ulcerations. He has been on proton pump inhibition and is currently without complaints.. Performing Provider:: Chandler Chan MD Referring Provider:: . Sedation:: Monitored anesthesia care Procedure:: After informed consent was obtained the patient was taken to the endoscopy suite. Sedation ensued after the patient was transferred to the left lateral decubitus position. Pulse, blood pressure, and oxygen saturation were monitored throughout the procedure. The endoscope was advanced beyond the duodenal bulb. Retroflexion within the gastric lumen was accomplished. The gastroscope was carefully removed and the patient was transferred to recovery in stable condition. Please see findings and specimens below for detail. Findings:: Minimal gastritis All ulcerations healed Specimens:: Antral biopsy Recommendations:: Continue proton pump inhibition Complications:: No immediate Estimated blood obtained (mL): 1
--- NOTE | 2022-08-30 11:14 | P.PN_ITS ---
[facility] Medical History Ankle fracture Gastric ulcer Hand fracture History of anemia Surgical History History of tonsillectomy Family History Other Family history of cancer Social History (Updated 08/30/22 @ 10:42 by Candelario Mcclendon RN) Smoking Status: Never smoker alcohol intake: never substance use type: denies use and former substance user current occupational status: employed Travel in the last 8 weeks: Inside the [place] household members: spouse housing: house lives independently: No marital status: education level: college ottoniel/church: None special ottoniel needs: No [facility] Anesthesia Checklist Patient Identification Patient Identification: Verbal (Name & ) Structural Data Admitted From: Home Planned Operative Procedure/s: egd Consent for Planned Operative Procedure(s) Verified: Yes Airway Assessment C-Spine Mobility Assessed: Yes TMJ Mobility Assessed: Yes Dentition: Poor Dentition Neurological Assessment Level of Consciousness: Awake, Alert and Appropriate Anesthesia Plan Anesthesia Risk discussed: Yes Anesthesia Plan: Verified ASA Class: II Anesthesia Type: MAC
[2022-08-30 11:15] VITALS: BP 123/73; PULSE 64; RESP 18; TEMP 36.9; O2SAT 96
[2022-08-30 11:25] VITALS: BP 124/72; PULSE 59; RESP 16; O2SAT 94
[2022-08-30 11:35] VITALS: BP 140/70; PULSE 63; RESP 18; O2SAT 98
[2022-08-30 11:47] VITALS: BP 126/77; PULSE 55; RESP 18; TEMP 36.6; O2SAT 98
--- NOTE | 2022-08-31 08:42 | EXP.ANES.CKL ---
[facility] Medical History Ankle fracture Gastric ulcer Hand fracture History of anemia Surgical History History of tonsillectomy Family History Other Family history of cancer Social History (Updated 08/30/22 @ 10:42 by Candelario Mcclendon RN) Smoking Status: Never smoker alcohol intake: never substance use type: denies use and former substance user current occupational status: employed Travel in the last 8 weeks: [place] the [place] household members: spouse housing: house lives independently: No marital status: education level: college ottoniel/voodoo: None special ottoniel needs: No [facility] Anesthesia Checklist Patient Identification Patient Identification: Family Structural Data Admitted From: Home Planned Operative Procedure/s: bmt,adenoidectomy Consent for Planned Operative Procedure(s) Verified: Yes Airway Assessment C-Spine Mobility Assessed: Yes TMJ Mobility Assessed: Yes Dentition: Good Dentition Neurological Assessment Level of Consciousness: Awake, Alert and Appropriate Anesthesia Plan Anesthesia Risk discussed: Yes Anesthesia Plan: Verified ASA Class: I Anesthesia Type: General
--- NOTE | 2022-08-31 08:44 | EXP.ANES.I ---
[facility] Anesthesia Record Part I Anesthesia Record I Intake, IV Amount: 400 Estimated blood loss (mL): 0 Urine output (mL): 0 Blood Pressure: 110/62 SaO2: 94 Pulse Rate: 100 Respiratory Rate: 18 Temperature: 97.2 F Patient is:: Drowsy and Stable Stable to PACU at:: 08:40
[2022-08-31 08:45] VITALS: BP 110/62; PULSE 100; RESP 18; TEMP 36.2; O2SAT 94
== END 2022-08-30 11:47 | disposition home or self-care (01) ==
PROVIDERS: PCP Internal Medicine Adolescent Medicine; Visit Provider Surgery
PROC: 0DJ08ZZ Inspection of Upper Intestinal Tract, Via Natural or Artificial Opening Endoscopic (ICD-10-PCS; CPT 43235; principal; 2022-08-30 11:00)
DX: K25.9 Gastric ulcer, unspecified as acute or chronic, without hemorrhage or perforation (principal); K29.70 Gastritis, unspecified, without bleeding
CPT/HCPCS: 43239

== ENCOUNTER → 2022-09-08 09:13 | Outpatient (CLI) | payer BC, SELFPAY ==
--- NOTE | 2022-09-08 09:17 | US_ITS ---
FINAL REPORT CLINICAL HISTORY: Lymph node follow up COMPARISON: April 2022 FINDINGS: US EXTREMITY, NONVASCULAR, LIMITED, ANATOMIC SPECIFIC Limited sonographic images were obtained of the right inguinal region. A persistent 2.5 cm lymph node appears smaller than on the prior exam. There are other adjacent lymph nodes measuring up to 1 cm. IMPRESSION: Right inguinal adenopathy with slight improvement in the largest lymph node. Reviewed, Interpreted and Dictated by Lorenzo James MD Transcribed by Reginald Xavier Authenticated and [facility]
== END ==
LOC: RAD 09:13
PROVIDERS: PCP Internal Medicine Adolescent Medicine; Visit Provider Surgery
DX: R09.89 Other specified symptoms and signs involving the circulatory and respiratory systems (principal)
CPT/HCPCS: 76882

== ENCOUNTER 2023-12-04 10:25 | Emergency (ER) | payer OTHER, SELFPAY ==
[2023-12-04 10:26] VITALS: BP 156/74; PULSE 84; RESP 15; TEMP 36.9; O2SAT 99; BMI 21.2
--- NOTE | 2023-12-04 10:43 | ED_ITS ---
Discharge Plan Disposition Patient Disposition: Home, Self-Care Condition: Good Prescriptions Prescriptions: No Action ferrous gluconate 324 mg (38 mg iron) tablet 324 mg PO DAILY Patient Comments: TAKE 1 TABLET BY MOUTH ONCE DAILY acetaminophen 325 mg Tablet 650 mg PO Q4HP PRN (Reason: Fever Or Mild Pain) Qty: 60 0RF pantoprazole 40 mg tablet,delayed release (DR/EC) 40 mg PO BID Qty: 60 0RF sucralfate 1 gram tablet 1 g PO ACHS Referrals Follow up/Referrals: Trenton Fermin MD [Primary Care Provider] - See instructions Activity Restrictions/Add. Instructions Additional Instructions/Restrictions: You have been evaluated in the ED for your complaints. You may follow-up with your PCP in the next 3 to 5 days. Please return to ED for any new or worsening symptoms. As discussed, please take Tylenol and ibuprofen as needed for your symptoms. I recommend 800 mg of ibuprofen every 6 hours as needed. Also recommend 1000 mg of Tylenol however do not exceed 4000 mg in 1 day. Please also drink plenty of fluids. Clinical Impressions Clinical Impression: Migraine Instructions Patient Instructions: DI for Migraine Discharge ED Provider: London Carrasco Adult HPI General Chief complaint: Headache Stated complaint: migraine Time Seen by Provider: 12/04/23 10:38 Mode of Arrival: Ambulatory Source of Information: Patient Limitations: No Limitations Description of Symptoms (Recalled from ER Triage Doc. by RN): pt presents to ED with c/o migraine. pt reports symptoms began last night. pt reports history of symptoms approx 1 month ago. pt reports vomitting last night with symptoms. History of Present Illness HPI narrative: 38-year-old male with past medical history significant for migraine headaches, gastric ulcer, presents today for evaluation concerning migraine headache that has been present over the past day. He states that his headache is located mainly in the right temporal region. He reports photophobia and phonophobia. States he had a few episodes of N/V on last night secondary to his pain. Denies having any neck pain, back pain, fevers, chills, chest pain, shortness of br eath, cough, congestion, rhinorrhea or any other associated symptoms at this time. Denies any numbness or tingling. No further complaints. Related Data Home Medications Medication Instructions Recorded Confirmed ferrous gluconate 324 mg (38 mg 324 mg PO DAILY iron 07/20/22 09/27/22 iron) tablet sucralfate 1 gram tablet 1 g PO ACHS Pain 08/30/22 09/27/22 Previous Rx's Medication Instructions Recorded acetaminophen 325 mg tablet 650 mg PO Q4HP PRN Fever Or Mild 07/12/22 Pain #60 tabs pantoprazole 40 mg tablet,delayed 40 mg PO BID Gastric ulcers #60 07/12/22 release tabs Allergies Allergy/AdvReac Type Severity Reaction Status Date / Time Penicillins Allergy Severe Difficulty Verified 09/27/22 08:45 Breathing [facility] Disclaimer: The information contained in this section may have been updated after the patient was seen, as this information can be updated by other users. Medical History (Updated 12/04/23 @ 11:47 by London Carrasco DO) Ankle fracture Gastric ulcer Hand fracture History of anemia Surgical History (Updated 09/27/22 @ 08:45 by CHARI Mackey) History of esophagogastroduodenoscopy (EGD) History of tonsillectomy Family History Other Family history of cancer Social History Smoking Status: Never smoker alcohol intake: never substance use type: denies use and former substance user current occupational status: employed Travel in the last 8 weeks: Inside the [place] household members: spouse housing: house lives independently: No marital status: education level: college ottoniel/buddhism: None special ottoniel needs: No ROS Obtained: Yes All systems reviewed & no additional complaints except as documented Physical Exam General General appearance: alert and in no apparent distress Head Head exam: atraumatic and normocephalic Eye Eye exam: Present normal appearance, PERRL and EOMI ENT ENT exam: Present normal oropharynx and mucous membranes moist Neck Neck exam: Present full ROM; Absent meningismus Respiratory Respiratory exam: Absent respiratory distress, wheezes, stridor or accessory muscle use Cardiovascular Cardiovascular exam: Present normal rhythm Abdominal Exam Abdominal exam: Present soft; Absent distention, tenderness, guarding, rebound or rigidity Neurological Exam Neurological exam: Present alert, oriented X3 and CN II-XII intact; Absent motor sensory deficit Psychiatric Psychiatric exam: Present normal affect and normal mood Skin Skin exam: Present warm and dry Medical Decision Making Medical Records Medical records reviewed: Yes I reviewed the patient's medical records. José Manuel Inquiry Pt receiving controlled substance: No José Manuel was queried for this patient: No Vital Signs: 12/04/23 10:26 Temperature 98.5 F Temperature Source Oral Pulse Rate [Left Radial] 84 Respiratory Rate 15 Blood Pressure [Right Arm] 156/74 H Blood Pressure Mean [Right Arm] 101 02 Sat by Pulse Oximetry 99 Oxygen Delivery Method Room Air Lab Data Lab Results 12/04/23 10:35: WBC 9.5, RBC 6.66 H, Hgb 12.3 L, Hct 38.8 L, MCV 58.3 L, MCH 18.4 L, MCHC 31.6 L, RDW 16.0, Plt Count 229, MPV 7.0 L, Neut % (Auto) 79.9, Lymph % (Auto) 15.9, Dooly % (Auto) 3.5, Eos % (Auto) 0.4, Baso % (Auto) 0.3, Neut # (Auto) 7.6, Lymph # (Auto) 1.5, Dooly # (Auto) 0.3, Eos # (Auto) 0.0, Baso # (Auto) 0.0, Sodium 139, Potassium 3.9, Chloride 101, Carbon Dioxide 27, Anion Gap 14.9, BUN 13, Creatinine 0.70, Estimated Creat Clear 164, Estimated GFR 128, Est GFR ( Amer) 154, Glucose 103 H, Calcium 9.7 12/04/23 10:35 12/04/23 10:35 Orders (Tests/Meds): ED MEDICATIONS Discontinued Medications Generic Name Dose Route Start Last Admin Trade Name Amparo PRN Reason Stop Dose Admin Acetaminophen 1,000 mg 12/04/23 10:42 12/04/23 10:54 Acetaminophen 500mg Tab PO 12/04/23 10:43 1,000 mg ONCE ONE Administration Ibuprofen 800 mg 12/04/23 10:42 12/04/23 10:54 Ibuprofen 800 Mg Tablet PO 12/04/23 10:43 800 mg ONCE ONE Administration Ondansetron HCl 4 mg 12/04/23 10:43 12/04/23 10:54 Ondansetron 4mg/2ml Vial IV 12/04/23 10:44 4 mg ONCE ONE Administration ORDERS Category Date Time Status Basic Metabolic Panel Stat Lab 12/04/23 10:35 Completed CBC [Complete Blood Count Auto Diff] Stat Lab 12/04/23 10:35 Completed Medical Decision Narrative: 38-year-old male with past medical history significant for migraine headaches, gastric ulcer, presents today for evaluation concerning migraine headache that has been present over the past day. He states that his headache is located mainly in the right temporal region. He reports photophobia and phonophobia. States he had a few episodes of N/V on last night secondary to his pain. On assessment, the patient was hemodynamically stable and in no acute distress. Afebrile. Neurological assessment was nonfocal. Chest clear to auscultation bilaterally. Oropharynx clear. Differential diagnoses include not limited to migraine headache, tension headache, cluster headache, electrolyte disturbance, low suspicion for meningitis given lack of meningeal signs, among others. Patient's lab workup today is unremarkable for an RBC of 6.66. Stable anemia with hemoglobin of 12.3. Hematocrit of 38.8. No electrolyte disturbance on BMP. On reassessment he remains medically stable and in no acute distress. He states his headache is much improved at this time rating it as a 3 out of 10. I discussed ED workup results and current plan to discharge home with supportive c are measures in the setting of his migraine headache. He instructed him concerning Tylenol and ibuprofen as these interventions assisted today in the ED. Provided him with return ED precautions and instructions concerning PCP follow-up. He verbalized understanding and agreed with plan. Subsequently discharged home hemodynamically stable and in no acute distress. Critical Care Critical Care Time Critical Care Time: No
[2023-12-04 10:54] LABS: Anion Gap 14.9 mEq/L (5-15); Basophils % 0.3 % (0.1-2.0); Blood Urea Nitrogen 13 mg/dl (9-20); Calcium 9.7 mg/dl (8.4-10.2); Carbon Dioxide 27 mmol/L (22.0-30.0); Chloride 101 mmol/L (98-107); Creatinine Clearance Estimated 164 mL/min (50-200); Eosinophils % 0.4 % (0.1-12.0); Estimated Glomerular Filt Rate 128 ml/min (>60); GFR (African American) 154 ML/MIN (>60); Glucose 103 mg/dl (74-100); Hematocrit 38.8 % (42.0-52.0); Hemoglobin 12.3 g/dL (14.1-18.0); Lymphocytes # 1.5 K/mm3 (0.7-4.5); Lymphocytes % 15.9 % (10-50); Mean Corpuscular HGB Conc 31.6 g/dL (31.8-35.4); Mean Corpuscular Hemoglobin 18.4 pg (27.0-31.2); Mean Corpuscular Volume 58.3 fl (80-94); Monocytes # 0.3 K/mm3 (0.1-1.0); Monocytes % 3.5 % (1.7-9.3); Neutrophils # 7.6 K/mm3 (1.8-7.8); Neutrophils % 79.9 % (37.0-80.0); Platelet Count 229 K/mm3 (142-424); Potassium 3.9 mmoL/L (3.5-5.1); Red Blood Count 6.66 M/mm3 (4.60-6.20); Sodium 139 mmol/L (136-145); White Blood Count 9.5 K/mm3 (4.8-10.8)
[2023-12-04] MEDS: ACETAMINOPHEN 500MG TAB 1000 MG PO (10:54)
[2023-12-04] MEDS: IBUPROFEN 800 MG TABLET PO (10:54)
[2023-12-04] MEDS: ONDANSETRON 4MG/2ML VIAL 4 MG IV (10:54)
[2023-12-04 11:55] VITALS: BP 120/80; PULSE 68; RESP 15; TEMP 36.7
== END 2023-12-04 11:56 | disposition home or self-care (01) ==
PROVIDERS: Emergency Provider Emergency Medicine; PCP Internal Medicine Adolescent Medicine
DX: G43.909 Migraine, unspecified, not intractable, without status migrainosus (principal)
CPT/HCPCS: 80048; 85025; 96374; 99284; J2405

== ENCOUNTER 2024-01-24 22:37 | Emergency (ER) | payer OTHER, SELFPAY ==
[2024-01-24 22:38] VITALS: BP 130/94; PULSE 76; RESP 16; TEMP 36.6; O2SAT 100; BMI 21.9
--- NOTE | 2024-01-24 23:11 | HMH.EDGENADL ---
Discharge Plan Disposition Patient Disposition: Home, Self-Care Prescriptions Prescriptions: No Action ferrous gluconate 324 mg (38 mg iron) tablet 324 mg PO DAILY Patient Comments: TAKE 1 TABLET BY MOUTH ONCE DAILY acetaminophen 325 mg Tablet 650 mg PO Q4HP PRN (Reason: Fever Or Mild Pain) Qty: 60 0RF pantoprazole 40 mg tablet,delayed release (DR/EC) 40 mg PO BID Qty: 60 0RF sucralfate 1 gram tablet 1 g PO ACHS Referrals Follow up/Referrals: Trenton Fermin MD [Primary Care Provider] - See instructions Activity Restrictions/Add. 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 It is a swelling of the penis after an insect bite. If you develop signs of infection, recommend returning to the ER. This would include hardening of the skin, purulent drainage, continued worsening of the swelling. You can use [id number] topical antibiotics or topical Benadryl as needed. Clinical Impressions Clinical Impression: Swollen penis Tick bite of penis Qualifiers: Encounter type: initial encounter Qualified Code(s): S30.862A - Insect bite (nonvenomous) of penis, initial encounter Instructions Patient Instructions: DI for Skin Abscess Discharge ED Provider: Caesar Solis General Adult HPI General Chief complaint: Skin/Abscess/Foreign Body Stated complaint: abd pain, poss tick bite in groin area Time Seen by Provider: 01/24/24 22:45 Mode of Arrival: Ambulatory Source of Information: Patient Limitations: No Limitations Description of Symptoms (Recalled from ER Triage Doc. by RN): Pt states he had a tick on the head of his penis. Pt states he tried to remove the tick and he was unable to get the tick head out. Pt states he would like the ER staff to remove it. Pt is A&O*4 History of Present Illness HPI narrative: 38-year-old male without significant past medical history presents with swelling. He reports that he found a nonengorged tick on the head of his penis earlier today. He pulled it off but the head was retained. He has noted worsening of swelling of the penis since that time. He denies any purulent drainage. Denies any fever chills or other symptoms. Related Data Home Medications Medication Instructions Recorded Confirmed ferrous gluconate 324 mg (38 mg 324 mg PO DAILY iron 07/20/22 09/27/22 iron) tablet sucralfate 1 gram tablet 1 g PO ACHS Pain 08/30/22 09/27/22 Previous Rx's Medication Instructions Recorded acetaminophen 325 mg tablet 650 mg (2 x 325 mg) PO Q4HP PRN 07/12/22 Fever Or Mild Pain #60 tabs pantoprazole 40 mg tablet,delayed 40 mg PO BID Gastric ulcers #60 07/12/22 release tabs Allergies Allergy/AdvReac Type Severity Reaction Status Date / Time Penicillins Allergy Severe Difficulty Verified 09/27/22 08:45 Breathing PFSH [facility] Disclaimer: The information contained in this section may have been updated after the patient was seen, as this information can be updated by other users. Medical History (Updated 01/24/24 @ 23:30 by Caesar Solis MD) Gastric ulcer Ankle fracture Hand fracture History of anemia Surgical History (Updated 09/27/22 @ 08:45 by CHARI Mackey) History of esophagogastroduodenoscopy (EGD) History of tonsillectomy Family History Other Family history of cancer Social History Smoking Status: Unknown if ever smoked alcohol intake: never substance use type: denies use and former substance user current occupational status: employed Travel in the last 8 weeks: [place] the [place] household members: spouse housing: house lives independently: No marital status: education level: college ottoniel/cheondoism: None special ottoniel needs: No ROS Obtained: Yes All systems reviewed & no additional complaints except as documented Physical Exam General General appearance: alert and in no apparent distress Head Head exam: atraumatic and normocephalic Eye Eye exam: Present normal appearance, PERRL and EOMI ENT ENT exam: Present normal oropharynx and normal external ear exam Neck Neck exam: Present normal inspection and full ROM Chest Chest inspection: Present normal inspection and symmetric chest wall rise; Absent tenderness Respiratory Respiratory exam: Present normal lung sounds bilaterally; Absent respiratory distress Cardiovascular Cardiovascular exam: Present regular rate and normal rhythm Abdominal Exam Abdominal exam: Present soft; Absent distention, tenderness or guarding exam: Present other (Minuscule dark material noted on the top of the glans, likely representing retained tick fragments. The shaft of the penis is mildly swollen and edematous. No induration, no purulence.) Extremities Exam Extremities exam: Present normal inspection; Absent edema or joint swelling Back Exam Back exam: Present normal inspection; Absent tenderness Neurological Exam Neurological exam: Present alert and oriented X3; Absent motor sensory deficit Psychiatric Psychiatric exam: Present normal affect and normal mood Skin Skin exam: Present warm, dry and normal color Lymphatic Lymphatic Findings: no adenopathy Medical Decision Making Medical Records Medical records reviewed: Yes I reviewed the patient's medical records. José Manuel Inquiry Pt receiving controlled substance: No José Manuel was queried for this patient: No Vital Signs: 01/24/24 22:38 01/24/24 23:30 Temperature 97.8 F 98.1 F Temperature Source Oral Oral Pulse Rate 76 Pulse Rate [Left Radial] 76 Respiratory Rate 16 16 Blood Pressure 127/90 Blood Pressure [Right Arm] 130/94 H Blood Pressure Mean [Right Arm] 106 Blood Pressure Source [Right Arm] Automatic Cuff Blood Pressure Position [Right Arm] Sitting 02 Sat by Pulse Oximetry 100 Oxygen Delivery Method Room Air Room Air Lab Data Lab results reviewed: Yes I reviewed the patient's lab results. Medical Decision Narrative: 38-year-old male without significant past medical history presents with tick bite to the glans penis and penile swelling. History was obtained interactive discussion with patient. On arrival, patient is [afebrile, hemodynamically stable, satting appropriately, alert, oriented x4, GCS 15], moving all extremities spontaneously. Full physical exam performed and significant for findings consistent with summer penile syndrome, no evidence of infection, there is the appearance of retained tick parts on the top of the glans. Differential includes but is not limited to Summer penile syndrome, balanitis, STD, cellulitis, Lyme exposure. 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 Does not have the appearance of infection. Topical lidocaine was placed on the head of the penis, after topical lidocaine was removed, the dark material came off without further manipulation. I had extensive discussion with patient regarding symptoms and symptomatic care. Recommend that patient continue to monitor and return if he develops signs of infection. Patient discharged in stable condition. Procedures Risk/Benefits of Procedure(s) Were Explained: Yes Critical Care Critical Care Time Critical Care Time: No
[2024-01-24 23:30] VITALS: BP 127/90; PULSE 76; RESP 16; TEMP 36.7; O2SAT 100
== END 2024-01-24 23:34 | disposition home or self-care (01) ==
PROVIDERS: Emergency Provider Emergency Medicine; PCP Internal Medicine Adolescent Medicine
DX: S30.862A Insect bite (nonvenomous) of penis, initial encounter (principal); W57.XXXA Bitten or stung by nonvenomous insect and other nonvenomous arthropods, initial encounter
CPT/HCPCS: 99283

== ENCOUNTER 2024-03-23 17:50 | Emergency (ER) | payer OTHER, SELFPAY ==
[2024-03-23 18:10] VITALS: BP 125/82; PULSE 67; RESP 18; TEMP 36.6; O2SAT 97; BMI 20.7
--- NOTE | 2024-03-23 18:27 | ED_ITS ---
Discharge Plan Disposition Patient Disposition: Home, Self-Care Condition: Good Prescriptions Prescriptions: New cyclobenzaprine 10 mg Tablet 10 mg PO BID PRN (Reason: Muscle Spasm) Qty: 20 0RF methylprednisolone 4 mg Tablets,Dose Pack 4 mg PO DIRECTED 6 Days Qty: 21 0RF Rx Instructions: Take 1 pack as directed for 6 days No Action buprenorphine-naloxone 8-2 mg film See Rx Instructions .ROUTE .COMPLEX Rx Instructions: see rx instructions Referrals Follow up/Referrals: Trenton Fermin MD [Primary Care Provider] - See instructions Activity Restrictions/Add. Instructions Additional Instructions/Restrictions: Go home and rest. It would be best if you rested tomorrow too. No heavy lifting and No twisting for the next few days. Take the oral medications as directed. The muscle relaxer (cyclobenzaprine--Flexeril) will make you drowsy, so don't drive or operate heavy machinery after taking it. Don't start the oral steroids (medrol dose pack) until tomorrow, since you had the shots in here today. Follow up with your regular doctor. GO TO THE ER FOR ANY WORSENING SYMPTOMS OR CONCERN, ESPECIALLY BOWEL OR BLADDER ISSUES, SADDLE AREA NUMBNESS, FEVER, ETC Clinical Impressions Clinical Impression: Acute low back pain with sciatica Instructions Patient Instructions: DI for Low Back Pain, Dexamethasone Injection, Ketorolac Injection, Cyclobenzaprine Discharge ED Provider: Tonny Tovar [facility] General Stated complaint: lower back pain Mode of Arrival: Ambulatory Source of Information: Patient Limitations: No Limitations Time Seen by Provider: 03/23/24 18:27 Description of Symptoms (Recalled from Triage Doc. by RN): Pt has lower back pain. He thinks he pulled something or pinched a nerve. HEENT Symptoms (Recalled from RN notes): No Resp Symptoms (Recalled from RN notes): No Skin Symptoms (Recalled from RN notes): No MS Symptoms (Recalled from RN notes): Yes Functional Status (Recalled from RN notes): n/a History of Present Illness Provider Complaint: He states that he is having low back pain that radiates down his left leg. This started earlier today after he lifted something on his boat trailer. He denies any bowel or bladder issues. He denies any saddle area numbness. Related Data Home Medications Medication Instructions Recorded Confirmed buprenorphine 8 mg-naloxone 2 mg See Rx Instructions .Route .COMPLEX 03/23/24 03/23/24 sublingual film Previous Rx's Medication Instructions Recorded cyclobenzaprine 10 mg tablet 10 mg PO BID PRN Muscle Spasm #20 03/23/24 tabs methylprednisolone 4 mg tablets in 4 mg PO DIRECTED 6 days #21 tabs 03/23/24 a dose pack Allergies Allergy/AdvReac Type Severity Reaction Status Date / Time Penicillins Allergy Severe Difficulty Verified 03/23/24 18:26 Breathing Worker's Comp Is this a Worker's Comp case?: No PFSH [facility] Disclaimer: The information contained in this section may have been updated after the patient was seen, as this information can be updated by other users. Medical History (Updated 03/23/24 @ 19:12 by Tonny Tovar APRN) Gastric ulcer Ankle fracture Hand fracture History of anemia Surgical History History of esophagogastroduodenoscopy (EGD) History of tonsillectomy Family History Other Family history of cancer Social History Smoking Status: Unknown if ever smoked alcohol intake: never substance use type: denies use and former substance user current occupational status: employed Travel in the last 8 weeks: [place] the [place] household members: spouse housing: house lives independently: No marital status: education level: college ottoniel/rastafari: None special ottoniel needs: No ROS Obtained: Yes All systems reviewed & no additional complaints except as documented Constitutional Constitutional: Denies chills and Denies fever(s) Eyes Eyes: Denies eye discharge ENT Ears, Nose, Mouth, and Throat: Denies dizziness, Denies otalgia and Denies sore throat Cardiovascular Cardiovascular: Denies chest pain Respiratory Respiratory: Denies shortness of breath, Denies chest congestion, Denies cough, Denies stridor and Denies wheezing Gastrointestinal Gastrointestingal: Denies nausea or vomiting Musculoskeletal Musculoskeletal: Reports as per HPI and Reports back pain Integumentary/Breasts Skin/Breast: Denies rash Neurologic Neurologic: Denies dizziness and Denies paresthesias Allergic/Immunologic Allergic/Immunologic: Denies wheezing Physical Exam General General appearance: alert and in no apparent distress Head Head exam: atraumatic, normocephalic and normal inspection Eye Eye exam: Present normal appearance, PERRL and EOMI ENT ENT exam: Present normal exam, normal oropharynx, mucous membranes moist, TM's normal bilaterally and normal external ear exam Neck Neck exam: Present normal inspection, full ROM and trachea midline; Absent meningismus or lymphadenopathy Chest Chest inspection: Present normal inspection and symmetric chest wall rise; Absent tenderness Respiratory Respiratory exam: Present normal lung sounds bilaterally; Absent respiratory distress Cardiovascular Cardiovascular exam: Present regular rate and normal rhythm; Absent JVD Abdominal Exam Abdominal exam: Present soft and normal bowel sounds; Absent distention, tenderness or guarding Extremities Exam Extremities exam: Present normal inspection, full ROM and normal capillary refill; Absent calf tenderness Back Exam Back exam: Present normal inspection; Absent tenderness Neurological Exam Neurological exam: Present alert, oriented X3, CN II-XII intact, normal gait and reflexes normal; Absent motor sensory deficit Expanded Neurological Exam Speech: Present fluid speech Cranial nerves: Normal: EOM function (II, III, IV, ), facial sensation (V), facial palsy (VII), gag reflex (IX), spinal accessory function (XI) and tongue deviation (XII) Cerebellar function: normal gait Motor strength - LUE: 5/5 Motor strength - RUE: 5/5 Motor strength - LLE: 5/5 Motor strength - RLE: 5/5 Upper motor neuron exam: Normal: jose neglect and sensory extinction Sensory exam upper extremity: Normal: light touch and 2 point discrimination Sensory exam lower extremity: Normal: light touch and 2 point discrimination DTR: 2+: biceps (L), biceps (R), patellar (L), patellar (R), Achilles tendon (L) and Achilles tendon (R) Spinal cord function: Absent saddle anesthesia Psychiatric Psychiatric exam: Present normal affect and normal mood Skin Skin exam: Present warm, dry, intact and normal color Lymphatic Lymphatic Findings: no adenopathy Medical Decision Making Medical Records Medical records reviewed: No I reviewed the patient's medical records. José Manuel Inquiry Pt receiving controlled substance: No Vital Signs: 03/23/24 18:10 Temperature 97.9 F Temperature Source Oral Pulse Rate [Right Radial] 67 Respiratory Rate 18 Blood Pressure [Right Arm] 125/82 Blood Pressure Mean [Right Arm] 96 Blood Pressure Source [Right Arm] Automatic Cuff Blood Pressure Position [Right Arm] Sitting 02 Sat by Pulse Oximetry 97 Oxygen Delivery Method Room Air
[2024-03-23] MEDS: DEXAMETHASONE 4MG/ML 1ML VIAL 8 MG IM (18:56)
[2024-03-23] MEDS: KETOROLAC 60MG/2ML VIAL 60 MG IM (18:56)
[2024-03-23 19:28] VITALS: BP 125/82; PULSE 67; RESP 18; TEMP 36.6; O2SAT 97
== END 2024-03-23 19:28 | disposition home or self-care (01) ==
PROVIDERS: Emergency Provider Nurse Practitioner Family; PCP Internal Medicine Adolescent Medicine
DX: M54.42 Lumbago with sciatica, left side (principal)
CPT/HCPCS: 96372; 99212; 99214; G0463

== ENCOUNTER 2024-05-10 16:46 | Outpatient (CLI) | payer OTHER, SELFPAY ==
--- NOTE | 2024-05-10 16:52 | XR_ITS ---
PROCEDURE INFORMATION: Exam: XR Lumbosacral Spine Exam date and time: 05/10/2024 4:55 PM Age: 39 years old Clinical indication: Injury or trauma; Other: Twisted back; Other: Twisting; Injury details: Twisted back hooking up boat; Additional info: Acute left sided low back pain with left-sided sciatica. Stabbing pains TECHNIQUE: Imaging protocol: Radiologic exam of the lumbosacral spine. Views: 4 or 5 views. COMPARISON: XR SACROILIAC JOINT BI MIN 3V 05/10/2024 4:55 PM FINDINGS: Bones/joints: Normal. No acute fracture. Normal alignment. Soft tissues: Unremarkable. IMPRESSION: No acute findings.
--- NOTE | 2024-05-10 16:52 | XR_ITS ---
PROCEDURE INFORMATION: Exam: XR Bilateral Sacroiliac Joints Exam date and time: 05/10/2024 4:55 PM Age: 39 years old Clinical indication: Other: Pain in lower back/pelvic; Patient HX: PT states he was hooking up his boat and twisted his back. Now, having stabbing pains and it locks up on him TECHNIQUE: Imaging protocol: XR bilateral XR of the sacroiliac joints. Views: 3 or more views. COMPARISON: XR SACROILIAC JOINT BI MIN 3V 05/10/2024 4:55 PM FINDINGS: Bones/joints: Normal. No acute fracture. Soft tissues: Normal. IMPRESSION: No acute findings.
[2024-05-10 18:25] LABS: Chloride 106 mmol/L (98-107); Sodium 141 mmol/L (136-145)
[2024-05-10 18:27] LABS: Blood Urea Nitrogen 13 mg/dl (9-20); Estimated Glomerular Filt Rate 109 ml/min (>60); GFR (African American) 132 ML/MIN (>60)
[2024-05-10 18:28] LABS: Alanine Aminotransferase 13 U/L (12-78); Albumin Level 4.1 g/dl (3.5-5.0); Albumin/Globulin Ratio 1.5 (1.1-1.8); Alkaline Phosphatase 38 U/L (38-126); Aspartate Amino Transferase 19 U/L (17-59); Bilirubin,Total 0.4 mg/dl (0.2-1.3); Calcium 9.2 mg/dl (8.4-10.2); Carbon Dioxide 30 mmol/L (22.0-30.0); Globulin 2.7 g/dL (1.3-3.2); Glucose 86 mg/dl (74-100); Total Protein,Serum 6.8 g/dl (6.3-8.2)
== END 2024-05-10 23:59 | disposition home or self-care (01) ==
LOC: LAB 16:48
PROVIDERS: PCP Internal Medicine Adolescent Medicine; Visit Provider Physician Assistant
DX: M54.42 Lumbago with sciatica, left side (principal); T39.1X1A Poisoning by 4-Aminophenol derivatives, accidental (unintentional), initial encounter
CPT/HCPCS: 36415; 72110; 72202; 80053

== ENCOUNTER 2024-06-12 17:00 | Outpatient (RCR) | payer OTHER, SELFPAY ==
--- NOTE | 2024-05-21 18:03 | [facility].PTOPEV ---
PT Outpatient Evaluation Rehab PT Outpatient Evaluation Start: 05/21/24 17:42 Freq: Status: Active Protocol: Document 05/21/24 17:42 AURELIANO (Rec: 05/21/24 18:02 AURELIANO [id number]) E-signed By Phillip Martinez, PT Outpatient Therapy Subjective History Subjective History Patient is a 39 year old male presenting to outpatient PT with reports of acute LBP with radiating symptoms to L buttock. Symptom onset starting approx 1 month as a result of bending/lifting/ twisting movement. Extension protocol inconsistent with any LS disc pathology. SI special tests indicate L upslip of the innominant. Comorbidties include hx of GI bleed due to NSAID overuse. New diagnosis of cancer in past 12 No months? Chief Complaint Pain,Spasms Symptom Type Ache,Sharp Symptoms Relieved By Rest/Positioning,OTC Meds Symptoms Aggravated By Standing,Bending/Stooping, Physical Activity,Walking, Lifting Prior Functional Limitations None Current Functional Limitations Lifting,Housework,Standing, Squatting,Walking,Bending/ Stooping Symptom Description Constant but Variable Level of pain today (0-10) 2 Pain scale - at its best (0-10) 2 Pain scale - at its worst (0-10) 8 Lumbopelvic Eval Posture Thoracic Spine Posture Standing Position Increased Kyphosis Lumbar Spine Posture Standing Position Decreased Lordosis Assistive device Assistive Devices None / NA Palapation tenderness left Lumbar/Sacral Palpation Findings Tenderness Lumbar/Sacral Palpation Overall Comment L SIJ, upper gluteal/ piriformis mm Accessory Movement S1 left Range of Motion Lumbar Spine Active Flexion Range of 62 Motion (degrees) Lumbar Spine Active Extension Range of 11 Motion (degrees) Left Lumbar Spine Lateral Flexion Active 17 Range of Motion (degrees) Right Lumbar Spine Lateral Flexion 21 Active Range of Motion (degrees) Lumbar Spine ROM Limitations Soft Tissue Tightness Manual Muscle Test Bilateral Knee Extension Strength Grade 5 Normal Knee Flexion Strength Grade 5 Normal Hip Flexion Strength Grade 5 Normal Extensor Hallucis Longus Strength Grade 5 Normal Ankle Dorsiflexion Strength Grade 5 Normal Gastronemius/Soleus Strength Grade 5 Normal Special Tests Hip Piriformis Test Positive Left Sciatic Nerve Tension Test Positive Left Cristo Test Positive Sacroiliac Joint Compression Test Positive Left Sacroiliac Joint Distraction Test Positive Left Lumbar Long Gideon Distraction Test/Manual Negative Traction Oswestry Index Section 1 Pain Intensity The pain is severe and does not vary much Section 2 Personal Care (Washing,Dresing) my way of washing or dressing even though it causes some pain Section 3 Lifting Pain prevents me from lifting weights off the floor Section 4 Walking I cannot walk more than one mile wihtout increasing pain Section 5 Sitting Pain prevents me from sitting for more than one hour Section 6 Standing I cannot stand more than 1/2 hour without increasing pain Section 7 Sleeping Because of my pain, my normal night's sleep is less than 6 hours sleep Section 8 Social Life My social life is normal but increases the degree of pain Section 9 Traveling I get extra pain while traveling, but it does not compel me to seek al Section 10 Changing Degreee of Pain My pain is gradually getting worse Score and Risk Level Oswestry Sc 24 Oswestry Risk Level Moderate Disability Outpatient Therapy Assessment Impairments Problems/Impairmments Palpation Tenderness,Impaired Range of Motion,Impaired Lifting,Impaired Household Care,Impaired Bending,Impaired Work Activities,Subjective C/ O Pain Prognosis Rehab Potential Good Clinical Impression Consistent with Diagnosis Yes Consistent with L upslip Short Term Goals Number of Weeks 2 Decrease Subjective C/O Pain Yes: 5/10 at worst Patient to be Ind w/ HEP Yes Beauty Therapist Goals Number of Weeks 4-6 Decreased Palpation Tenderness Yes: 1/4 Increase Range of Motion Yes: WNL Increase Ability to Walk Yes: 1 hr without difficulty Increase Ability to Stand Yes: Improve Tolerance to Work Activities Yes Improve Oswestry Score Yes: mild disability Decrease Subjective C/O Pain Yes: 2/10 at worst Outpatient Therapy Plan of Care Treatment Plan May Include Therapeutic Exercise Including Home Yes Exercise Program Manual Therapy Techniques Yes Neuromuscular Re-education Yes Therapeutic Activities to Return to Yes Previous Functional/Work Level Gait Training Yes ADL/Self Care Education Yes Mechanical Traction Yes Dry Needling Yes Thermal Modalities Yes Electrical Stimulation Yes Ultrasound/Phonophoresis Yes Iontophoresis Yes Orthotics/Bracing/Splinting Yes Massage Yes Eval/Re-Eval Yes Frequency Times per week 2 Duration Number of Weeks 4-6 Addendums This patient is a candidate for social No or vocational rehab? Patient/Guardian verbally acknowledges Yes understanding of treatment program and consents to further treatment? Patient/Guardian verbally acknowledges Yes understanding of diagnosis, prognosis and goals for treatment? Eval Complexity PT Charges 09499 - Moderate Complexity Shoulder/Elbow Eval Shoulder Objective Measurements Elbow Objective Measurements PHYSICIAN CERTIFICATION: I certify the specified therapy services for Cristian Mckenna JR are required, authorized, and reviewed every 30 days.
== END 2024-06-12 17:05 | disposition home or self-care (01) ==
LOC: PT 17:00
PROVIDERS: Visit Provider Physician Assistant
DX: M54.42 Lumbago with sciatica, left side (principal)
CPT/HCPCS: 97110; 97163; 97530